=== PATIENT | female | born 1995 | race Hispanic/Latino ===

== ENCOUNTER 2024-01-21 15:30 | Emergency (ER) | payer OTHER ==
[~2024-01-21] VITALS: Ht 160 cm; Wt 63.5 kg
[2024-01-21 19:27] VITALS: BP 112/72; PULSE 72; RESP 16; O2SAT 100
[2024-01-21] MEDS: HYDROCODONE/ACETAMINOPHEN 5/325 MG TAB PO ONE (19:29)
== END 2024-01-21 19:45 | disposition home or self-care (01) ==
LOC: EDH 15:30
DX: S92.811A Other fracture of right foot, initial encounter for closed fracture (principal); V89.2XXA Person injured in unspecified motor-vehicle accident, traffic, initial encounter; Y93.I9 Activity, other involving external motion; Y92.488 Other paved roadways as the place of occurrence of the external cause; Y99.8 Other external cause status
CPT/HCPCS: 29515; 73630